=== PATIENT | female | born 1965 | race Caucasian/White ===

== ENCOUNTER → 2016-08-30 | Outpatient (CLI) | payer BC ==
[~2016-08-30] MED LIST: ASPIRIN325 PO; MAALOX ADVANCE770 ML PO; NITROGLYCERIN0.4 MG SL; ONDANSETRON ODT8 MG PO; PRILOSEC20 MG PO; SYNTHROID112 MCG PO; SYNTHROID75 MCG PO; VITAMIN D1000 UNI1 PO
--- NOTE | ~2016-08-30 | 2DMMODE ---
"[facility] [place] [place] [address] 2 D/M-MODE ECHOCARDIOGRAM Name: JULIUS WARREN Room #: REG [facility]#: [id number] Admission: 08/30/16 Attend Phys: Maximiliano Johnson MD Discharge: Date of : 69 Date of Service: 08/30/16 1054 Report #: [id number] THIS REPORT FOR: //name// APPROVED REPORT Study performed: 08/30/2016 10:00:47 EXAM: Comprehensive 2D, Doppler, and color-flow Echocardiogram Patient Location: Out-Patient Blood Pressure: 133/87 mmHg HR: 77 bpm Rhythm: NSR Other Information Study Quality: Adequate Indications MV repair and ASD closure at age 10. 2D Dimensions RVDd: 34.50 mm LVEF(%): 67.19 (>50%) IVSd: 11.05 (7-11mm) LVOT Diam: 21.01 (18-24mm) LVDd: 44.73 mm PWd: 11.18 (7-11mm) Ascending Ao: 39.87 (22-36mm) LVDs: 28.14 (25-40mm) Aortic Root: 34.22 mm Rust's LVEF: 67.19 % Volumes Left Atrial Volume (Systole) Single Plane 4CH: 46.85 mL Single Plane 2CH: 57.00 mL Aortic Valve AoV Peak Paresh.: 2.30 m/s AO Peak Gr.: 21.18 mmHg LVOT Max P.90 mmHg LVOT Max V: 1.86 m/s KATELIN Vmax: 2.81 cm2 Mitral Valve E/A Ratio: 0.8 MV Decel. Time: 192.90 ms MV E Max Paresh.: 0.97 m/s [facility] [address] [place] [address] 2 D/M-MODE ECHOCARDIOGRAM Name: BRIANAJULIUS [facility] Room #: REG [facility]#: [id number] Admission: 08/30/16 Attend Phys: Maximiliano Johnson MD Discharge: Date of : 69 Date of Service: 08/30/16 1054 Report #: [id number] MV A Paresh.: 1.24 m/s MV PHT: 55.94 ms IVRT: 72.66 ms Pulmonary Valve PV Peak Paresh.: 0.98 m/s PV Peak Gr.: 3.86 mmHg Pulmonary Vein P Vein S: 81.8 m/s P Vein A: 42.06 m/s P Vein D: 40.6 m/s P Vein A Dur.: 120.0 msec Tricuspid Valve TR Peak Paresh.: 2.20 m/s TR Peak Gr.: 19.40 mmHg RVSP: 24.00 mmHg Left Ventricle The left ventricle is normal size. There is normal LV segmental wall motion. There is normal left ventricular wall thickness. Left ventricular systolic function is normal. LVEF is 65%. Grade I - abnormal relaxation pattern. Right Ventricle The right ventricle is normal size. The right ventricular systolic function is normal. Atria Left atrium appears mildly dilated. The right atrium size is normal. Aortic Valve The aortic valve is not well visualized but appears grossly normal. Mild aortic regurgitation. There is no aortic valvular stenosis. Mitral Valve History of mitral valve repair. Leaflets appear mildly calcified. Mild to moderate mitral regurgitation. No evidence of mitral valve stenosis. Tricuspid Valve The tricuspid valve is normal in structure. There is mild tricuspid regurgitation. The right atrial pressure is estimated at 5 mmHg.Estimated PAP is 24mmHg. Pulmonic Valve The pulmonary valve is normal in structure. There is no pulmonic [address] [address] 2 D/M-MODE ECHOCARDIOGRAM Name: WARRENJULIUS [id number] Admission: 08/30/16 Attend Phys: Maximiliano Johnson MD Discharge: Date of : 69 Date of Service: 08/30/16 1054 Report #: [id number] valvular regurgitation. Great Vessels The aortic root is normal in size. 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 Pericardium There is no pericardial effusion. <Conclusion> The left ventricle is normal size. Left ventricular systolic function is normal. Grade I - abnormal relaxation pattern. The right ventricle is normal size. Left atrium appears mildly dilated. The aortic valve is not well visualized but appears grossly normal. Mild aortic regurgitation. History of mitral valve repair. Leaflets appear mildly calcified. Mild to moderate mitral regurgitation. There is mild tricuspid regurgitation. The right atrial pressure is estimated at 5 mmHg.Estimated PAP is 24mmHg. <ELECTRONICALLY SIGNED> By: Maximiliano Johnson MD 08/30/16 1054 1054 1054 Maximiliano Johnson MD /INF"
== END ==
LOC: CV 06:23
DX: I25.10 Atherosclerotic heart disease of native coronary artery without angina pectoris (principal)

== ENCOUNTER → 2020-09-09 | Outpatient (CLI) | payer BC, OTHER | LOC: SJCVCIMAG 08:31 | PROVIDERS: ATTEND Internal Medicine Cardiovascular Disease | DX: I08.2 Rheumatic disorders of both aortic and tricuspid valves (principal); I10 Essential (primary) hypertension ==